=== PATIENT | female | born 1990 | race African-American/Black ===

== ENCOUNTER 2016-11-30 01:25 | Emergency (ER) | payer BC ==
[~2016-11-30] VITALS: Ht 170.2 cm; Wt 81.7 kg
[2016-11-30 01:25] VITALS: BP 134/90
[~2016-11-30 01:25] MED LIST: AFEDITAB CR30 MG PO; APAP500 PO; COLACE 100 MG100 MG PO; HYDROCODON-ACE1 EAC7 PO; IBUPROFEN 600600 M1 PO; IRON325 PO; NORCO 5-325 TA1 EACH PO; TRAMADOL 50 MG50 MG PO; TRINATE TABLET1 TAB PO; ZOFRAN ODT4 MG PO
[2016-11-30] MEDS ORDERED: NORCO 5-325 TA1 EACH PO (01:48)
== END 2016-11-30 02:07 | disposition home or self-care (01) ==
LOC: ER 01:25
DX: M54.12 Radiculopathy, cervical region (principal); M26.69 Other specified disorders of temporomandibular joint; Z98.890 Other specified postprocedural states

== ENCOUNTER 2018-02-23 00:09 | Emergency (ER) | payer OTHER ==
[~2018-02-23] VITALS: Ht 170.2 cm; Wt 96.6 kg
[2018-02-23] MEDS ORDERED: MUSCLE RELAXANT (00:20)
[2018-02-23] MEDS ORDERED: IBUPROFEN 200200 M1 (00:21)
[2018-02-23] MEDS ORDERED: PENICILLIN V P500 MG PO (01:13)
[2018-02-23] MEDS ORDERED: TRAMADOL 50 MG50 MG PO (01:13)
[2018-02-23 01:31] VITALS: BP 126/72
== END 2018-02-23 01:32 | disposition home or self-care (01) ==
LOC: ER 00:09
DX: S03.41XA Sprain of jaw, right side, initial encounter (principal); M26.621 Arthralgia of right temporomandibular joint; K04.7 Periapical abscess without sinus; X58.XXXA Exposure to other specified factors, initial encounter; Y93.89 Activity, other specified; Y92.89 Other specified places as the place of occurrence of the external cause; Y99.8 Other external cause status

== ENCOUNTER 2018-09-01 21:06 | Emergency (ER) | payer OTHER ==
[~2018-09-01] VITALS: Ht 172.7 cm; Wt 91.6 kg
[~2018-09-01 21:06] MED LIST changes: +IBUPROFEN 200200 M1; +MUSCLE RELAXANT; +PENICILLIN V P500 MG PO
[2018-09-01 21:26] LABS: URINE CLARITY CLOUDY; URINE COLOR YELLOW; URINE GLUCOSE-RANDOM* NEGATIVE (Negative); URINE KETONES NEGATIVE (Negative); URINE PROTEIN (DIPSTICK) NEGATIVE (Negative); URINE SPECIFIC GRAVITY 1.025 (1.005-1.035)
[2018-09-01 21:27] LABS: URINE BILIRUBIN NEGATIVE (Negative); URINE BLOOD 1+ (Negative); URINE LEUKOCYTES-REFLEX NEGATIVE (Negative); URINE NITRITE-REFLEX NEGATIVE (Negative); URINE UROBILINOGEN 0.2 E.U./dl (0.2-1.0)
[2018-09-01 21:36] LABS: BACTERIA-REFLEX 1-9 Few /HPF (None Seen); CASTS None Seen /LPF (None Seen); CRYSTALS None Seen /LPF (None Seen); SQUAMOUS >10 Many /LPF (0-3); URINE RBC 3-10 Few /HPF (0-2); URINE WBC-REFLEX 0-5 Rare /HPF (0-5)
[2018-09-01] MEDS ORDERED: MIRALAX17 GM PO (21:51)
[2018-09-01 22:01] VITALS: BP 126/79
== END 2018-09-01 22:10 | disposition home or self-care (01) ==
LOC: ER 21:06
PROVIDERS: Student in an Organized Health Care Education/Training Program
DX: K59.00 Constipation, unspecified (principal)

== ENCOUNTER 2018-09-06 06:54 | Emergency (ER) | payer OTHER ==
[~2018-09-06] VITALS: Ht 172.7 cm; Wt 92.1 kg
[~2018-09-06 06:54] MED LIST changes: +MIRALAX17 GM PO
[2018-09-06] MEDS ORDERED: TESSALON PERLE100 MG PO (08:51)
[2018-09-06] MEDS ORDERED: ACETAMINOPHEN-1 EAC1 PO (08:51)
[2018-09-06 08:57] VITALS: BP 138/68
== END 2018-09-06 08:58 | disposition home or self-care (01) ==
LOC: ER 06:54
DX: J20.8 Acute bronchitis due to other specified organisms (principal)

== ENCOUNTER 2018-12-07 13:24 | Emergency (ER) | payer OTHER ==
[~2018-12-07] VITALS: Ht 170.2 cm; Wt 89.4 kg
[~2018-12-07 13:24] MED LIST changes: +ACETAMINOPHEN-1 EAC1 PO; +TESSALON PERLE100 MG PO
[2018-12-07 13:25] VITALS: BP 117/66
[2018-12-07] MEDS ORDERED: NORFLEX100 MG PO (14:02)
[2018-12-07] MEDS ORDERED: NAPROSYN500 MG PO (14:02)
== END 2018-12-07 14:20 | disposition home or self-care (01) ==
LOC: ER 13:24
DX: M26.622 Arthralgia of left temporomandibular joint (principal)

== ENCOUNTER 2019-01-03 04:27 | Emergency (ER) | payer OTHER ==
[~2019-01-03] VITALS: Ht 172.7 cm; Wt 113.4 kg
[~2019-01-03 04:27] MED LIST changes: +NAPROSYN500 MG PO; +NORFLEX100 MG PO
[2019-01-03] MEDS ORDERED: NORCO 5-325 TA1 EACH PO (05:26)
[2019-01-03 06:45] VITALS: BP 119/79
== END 2019-01-03 06:52 | disposition home or self-care (01) ==
LOC: ER 04:27
DX: S43.014A Anterior dislocation of right humerus, initial encounter (principal); X50.1XXA Overexertion from prolonged static or awkward postures, initial encounter; Y92.89 Other specified places as the place of occurrence of the external cause; Y93.89 Activity, other specified; Y99.8 Other external cause status

== ENCOUNTER 2019-06-13 09:12 | Emergency (ER) | payer OTHER ==
[~2019-06-13] VITALS: Ht 172.7 cm; Wt 94.3 kg
[2019-06-13] MEDS ORDERED: ENBRACE HR SOF1 EACH PO (09:18)
[2019-06-13 12:20] VITALS: BP 114/72
== END 2019-06-13 12:20 | disposition home or self-care (01) ==
LOC: ER 09:12
DX: O26.891 Other specified pregnancy related conditions, first trimester (principal); J06.9 Acute upper respiratory infection, unspecified; Z3A.11 11 weeks gestation of pregnancy